=== PATIENT | female | born 1985 | race African-American/Black ===

== ENCOUNTER 2017-05-12 23:11 | Emergency (ER) | payer SELFPAY ==
[2017-05-12 23:24] VITALS: BP 151/95
[2017-05-13] MEDS ORDERED: ONDANSETRON 4 MG TAB.RAPDIS PO ONE (01:49)
[2017-05-13] MEDS ORDERED: OXYCODONE-ACETAMINOPHEN 5-325 MG TABLET PO ONE (01:49)
[2017-05-13] MEDS ORDERED: FAMOTIDINE 20 MG TABLET PO ONE (01:50)
[2017-05-13] MEDS ORDERED: SUCRALFATE 1 GM TABLET PO ONE (01:50)
--- NOTE | 2017-05-13 01:53 | ER Document Report ---
ED GI/ - General Chief Complaint: Abdominal Pain Stated Complaint: ABDOMINAL PAIN Time Seen by Provider: 05/13/17 01:42 Notes: Patient is a 32-year-old female that comes to the emergency department for chief complaint of upper abdominal pain. She states it has been intermittent for the past week but became worse tonight, she states she threw up twice. She denies hematemesis, hematochezia, had a normal bowel movement today. She denies fever or chills. She states she has a history of reflux, she feels worse when she eats, she has trouble lying down, and she started taking both an [id number] reflux medication that she cannot name and also ibuprofen. She states she feels like she is worse. Only past medical history otherwise of . She smokes. Rare alcohol. TRAVEL OUTSIDE OF THE [place] IN LAST 30 DAYS: No - Related Data Allergies/Adverse Reactions: No Known Allergies Allergy (Verified 03/08/13 10:55) Past Medical History - General Information source: Patient - Social History Smoking Status: Never Smoker Frequency of alcohol use: None Drug Abuse: None Lives with: Family Family History: Reviewed & Not Pertinent - Past Medical History Cardiac Medical History: Reports: Hx Hypertension Pulmonary Medical History: Reports: Hx COPD Past Surgical History: Reports: Hx Tubal Ligation - Immunizations Hx Diphtheria, Pertussis, Tetanus Vaccination: - unknown Review of Systems - Review of Systems Constitutional: No symptoms reported EENT: No symptoms reported Cardiovascular: No symptoms reported Respiratory: No symptoms reported Gastrointestinal: See HPI Genitourinary: No symptoms reported Female Genitourinary: No symptoms reported Musculoskeletal: No symptoms reported Skin: No symptoms reported Hematologic/Lymphatic: No symptoms reported Neurological/Psychological: No symptoms reported Physical Exam - Vital signs Vitals: Temp Pulse Resp BP Pulse Ox 99.0 F 78 18 151/95 H 100 05/12/17 23:22 05/12/17 23:22 05/12/17 23:22 05/12/17 23:22 05/12/17 23:22 Interpretation: Normal - General General appearance: Appears well, Alert In distress: None - HEENT Head: Normocephalic, Atraumatic Eyes: Normal Pupils: PERRL - Respiratory Respiratory status: No respiratory distress Chest status: Nontender Breath sounds: Normal. No: Decreased air movement, Wheezing Chest palpation: Normal - Cardiovascular Rhythm: Regular. No: Tachycardia Heart sounds: Normal auscultation, S1 appreciated, S2 appreciated Murmur: No - Abdominal Inspection: Normal Distension: No distension Bowel sounds: Normal Tenderness: Tender - There is tenderness in the epigastric area and left upper quadrant, no right upper quadrant tenderness, no severe tenderness or guarding, lower abdomen is benign Organomegaly: No organomegaly - Back Back: Normal, Nontender - Extremities General upper extremity: Normal inspection, Nontender, Normal color, Normal ROM , Normal temperature General lower extremity: Normal inspection, Nontender, Normal color, Normal ROM , Normal temperature, Normal weight bearing. No: Bety's sign - Neurological Neuro grossly intact: Yes Cognition: Normal Orientation: AAOx4 [place] Coma Scale Eye Opening: Spontaneous [place] Coma Scale Verbal: Oriented [place] Coma Scale Motor: Obeys Commands Malathi Coma Scale Total: 15 Speech: Normal Motor strength normal: LUE, RUE, LLE, RLE Sensory: Normal - Psychological Associated symptoms: Normal affect, Normal mood - Skin Skin Temperature: Warm Skin Moisture: Dry Skin Color: Normal Course - Re-evaluation Re-evalutation: Patient is well-appearing, has tenderness in the left upper quadrant and epigastric area with no right upper quadrant tenderness. History of GERD, taking ibuprofen because she did not know this would make it worse. After medications by mouth patient states she feels a lot better. CBC unremarkable, chemistry, lipase unremarkable. Urinalysis actually shows infection. Patient has no CVA tenderness, no lower abdominal tenderness. Discussed this, decision was made to treat because of the amount of evidence that she has a urinary tract infection. Discussed follow -up, return precautions. Patient states understanding and agreement. - Vital Signs Vital signs: Temp Pulse Resp BP Pulse Ox 99.0 F 78 18 151/95 H 100 05/12/17 23:22 05/12/17 23:22 05/12/17 23:22 05/12/17 23:22 05/12/17 23:22 - Laboratory Result Diagrams: 05/13/17 02:18 05/13/17 02:18 Laboratory results interpreted by me: 05/13/17 05/13/17 02:18 02:18 RDW 15.8 H Urine Nitrite POSITIVE H Ur Leukocyte Esterase SMALL H Discharge - Discharge Clinical Impression: Upper abdominal pain Condition: Stable Disposition: HOME, SELF-CARE Additional Instructions: Your workup and evaluation are most consistent with gastritis. Take the Pepcid and Carafate as prescribed, start with clear fluids, progress to bland food, then progress to normal. Avoid spicy food, NSAIDs (ibuprofen, naproxen, aspirin , etc.), alcohol, smoking, and high levels of caffeine. Follow-up with primary care for additional evaluation, especially if symptoms continue. Your urine indicates an infection, take Keflex antibiotics as prescribed. Return if you worsen in anyway including vomiting, vomiting blood, severe pain, fever of 100.4 or greater, black stools, or any other concerning symptoms. Prescriptions: Cephalexin Monohydrate [Keflex 500 mg Capsule] 500 mg PO BID #10 capsule Famotidine [Pepcid 20 mg Tablet] 20 mg PO BID #20 tablet Sucralfate [Carafate 1 gm Tablet] 1 gm PO QID #40 tablet
[2017-05-13 02:31] LABS: ABSOLUTE EOSINOPHILS # (AUTO) 0.1 10^3/uL (0.0-0.6); ABSOLUTE LYMPHOCYTES (AUTO) 2.6 10^3/uL (0.5-4.7); ABSOLUTE MONOCYTES (AUTO) 0.5 10^3/uL (0.1-1.4); ABSOLUTE NEUT (AUTO) 4.9 10^3/uL (1.7-8.2); BASOPHILS % (AUTO) 0.5 % (0-2); EOSINOPHILS % (AUTO) 1.3 % (0-6); HEMATOCRIT 37.2 % (36.0-47.0); HEMOGLOBIN 12.3 g/dL (12.0-15.5); LYMPHOCYTES % (AUTO) 31.9 % (13-45); MEAN CORPUSCULAR HEMOGLOBIN 27.2 pg (27.0-33.4); MEAN CORPUSCULAR VOLUME 83 fl (80-97); MONOCYTES % (AUTO) 6.7 % (3-13); PLATELET COUNT 354 10^3/uL (150-450); RED CELL DISTRIBUTION WIDTH 15.8 % (11.5-14.0); SEGMENTED NEUTROPHILS % (AUTO) 59.6 % (42-78); TOTAL CELLS COUNTED % (AUTO) 100 %; WHITE BLOOD COUNT 8.2 10^3/uL (4.0-10.5)
[2017-05-13 02:49] LABS: BILIRUBIN,URINE NEGATIVE (NEGATIVE); COLOR,URINE YELLOW; GLUCOSE, URINE NEGATIVE (NEGATIVE); KETONES,URINE NEGATIVE (NEGATIVE); LEUKOCYTE ESTERASE,URINE SMALL (NEGATIVE); NITRITE,URINE POSITIVE (NEGATIVE); PROTEIN,URINE NEGATIVE (NEGATIVE); URINE SPECIFIC GRAVITY 1.023; UROBILINOGEN,URINE NEGATIVE mg/dL (<2.0)
[2017-05-13 02:50] LABS: ALANINE AMINOTRANSFERASE 21 U/L (9-52); ALBUMIN 4.2 g/dL (3.5-5.0); ALKALINE PHOSPHATASE 47 U/L (38-126); ANION GAP 15 (5-19); APPEARANCE,URINE HAZY; ASPARTATE AMINO TRANSFERASE 15 U/L (14-36); BILIRUBIN,DIRECT 0.3 mg/dL (0.0-0.4); BILIRUBIN,TOTAL 0.3 mg/dL (0.2-1.3); BLOOD UREA NITROGEN 14 mg/dL (7-20); CALCIUM 9.6 mg/dL (8.4-10.2); CARBON DIOXIDE 25 mmol/L (22-30); CHLORIDE 101 mmol/L (98-107); GLUCOSE 96 mg/dL (75-110); LIPASE 171.5 U/L (23-300); POTASSIUM 4.2 mmol/L (3.6-5.0); SODIUM 140.7 mmol/L (137-145); TOTAL PROTEIN 7.4 g/dL (6.3-8.2)
[2017-05-13] MEDS ORDERED: HYDROCODONE/ACETAMINOPHEN 5-325 MG (6 TAB/ER DISP) PO PRN (03:11)
[2017-05-13] MEDS ORDERED: CEPHALEXIN 500 MG CAPSULE PO ONE (03:11)
== END 2017-05-13 03:22 | disposition home or self-care (01) ==
LOC: ER 23:11
DX: K21.9 Gastro-esophageal reflux disease without esophagitis (principal); N39.0 Urinary tract infection, site not specified; R10.10 Upper abdominal pain, unspecified; R10.816 Epigastric abdominal tenderness; R10.812 Left upper quadrant abdominal tenderness; R11.10 Vomiting, unspecified; I10 Essential (primary) hypertension; J44.9 Chronic obstructive pulmonary disease, unspecified
CPT/HCPCS: 99284; 36415; 83690; 85025; 81025; 80053; 81001; S0119

== ENCOUNTER 2017-07-04 19:16 | Emergency (ER) | payer SELFPAY ==
--- NOTE | 2017-07-04 19:42 | ER Document Report ---
ED Medical Screen (RME) - General Chief Complaint: Abdominal Pain Stated Complaint: ABDOMINAL PAIN Time Seen by Provider: 07/04/17 19:39 Notes: pt states she has left flank pain and congestion, rhinorhea. no urinary sx's TRAVEL OUTSIDE OF THE [place] IN LAST 30 DAYS: No - Related Data Allergies/Adverse Reactions: No Known Allergies Allergy (Verified 03/08/13 10:55) Past Medical History - Social History Chew tobacco use (# tins/day): No Frequency of alcohol use: None Drug Abuse: None Family history: Reviewed & Not Pertinent - Past Medical History Cardiac Medical History: Reports: Hx Hypertension Pulmonary Medical History: Reports: Hx COPD Renal/ Medical History: Denies: Hx Peritoneal Dialysis Past Surgical History: Reports: Hx Tubal Ligation - Immunizations Hx Diphtheria, Pertussis, Tetanus Vaccination: - unknown Physical Exam - Vital signs Vitals: Temp Pulse Resp BP Pulse Ox 99.5 F 96 18 143/93 H 99 07/04/17 19:20 07/04/17 19:20 07/04/17 19:20 07/04/17 19:20 07/04/17 19:20 Course - Vital Signs Vital signs: Temp Pulse Resp BP Pulse Ox 99.5 F 96 18 143/93 H 99 07/04/17 19:20 07/04/17 19:20 07/04/17 19:20 07/04/17 19:20 07/04/17 19:20
[2017-07-04 20:34] LABS: ABSOLUTE BASOPHILS # (AUTO) 0.1 10^3/uL (0.0-0.2); ABSOLUTE LYMPHOCYTES (AUTO) 2.3 10^3/uL (0.5-4.7); ABSOLUTE MONOCYTES (AUTO) 0.8 10^3/uL (0.1-1.4); ABSOLUTE NEUT (AUTO) 7.8 10^3/uL (1.7-8.2); BASOPHILS % (AUTO) 0.8 % (0-2); EOSINOPHILS % (AUTO) 0.4 % (0-6); HEMATOCRIT 38.1 % (36.0-47.0); HEMOGLOBIN 12.4 g/dL (12.0-15.5); LYMPHOCYTES % (AUTO) 20.8 % (13-45); MEAN CORPUSCULAR HEMOGLOBIN 26.7 pg (27.0-33.4); MEAN CORPUSCULAR HGB CONC 32.5 g/dL (32.0-36.0); MEAN CORPUSCULAR VOLUME 82 fl (80-97); MONOCYTES % (AUTO) 7.1 % (3-13); PLATELET COUNT 348 10^3/uL (150-450); RED BLOOD COUNT 4.64 10^6/uL (3.72-5.28); RED CELL DISTRIBUTION WIDTH 15.4 % (11.5-14.0); SEGMENTED NEUTROPHILS % (AUTO) 70.9 % (42-78); TOTAL CELLS COUNTED % (AUTO) 100 %
[2017-07-04 20:54] LABS: ALANINE AMINOTRANSFERASE 22 U/L (9-52); ALBUMIN 4.5 g/dL (3.5-5.0); ALKALINE PHOSPHATASE 63 U/L (38-126); ANION GAP 11 (5-19); ASPARTATE AMINO TRANSFERASE 19 U/L (14-36); BILIRUBIN,DIRECT 0.2 mg/dL (0.0-0.4); BILIRUBIN,TOTAL 1.2 mg/dL (0.2-1.3); BLOOD UREA NITROGEN 9 mg/dL (7-20); CARBON DIOXIDE 25 mmol/L (22-30); CHLORIDE 102 mmol/L (98-107); GLUCOSE 94 mg/dL (75-110); POTASSIUM 4.2 mmol/L (3.6-5.0); SODIUM 137.9 mmol/L (137-145); TOTAL PROTEIN 7.7 g/dL (6.3-8.2)
--- NOTE | 2017-07-04 20:54 | RADIOLOGY REPORT (SQ) ---
EXAM DESCRIPTION: CHEST 2 VIEWS COMPLETED DATE/TIME: 07/04/2017 8:46 pm REASON FOR STUDY: pain/left lateral chest COMPARISON: None. EXAM PARAMETERS: NUMBER OF VIEWS: two views TECHNIQUE: Digital Frontal and Lateral radiographic views of the chest acquired. RADIATION DOSE: NA LIMITATIONS: none FINDINGS: LUNGS AND PLEURA: No opacities, masses or pneumothorax. No pleural effusion. MEDIASTINUM AND HILAR STRUCTURES: No masses or contour abnormalities. HEART AND VASCULAR STRUCTURES: Heart normal size. No evidence for failure. BONES: No acute findings. HARDWARE: None in the chest. OTHER: No other significant finding. IMPRESSION: NO ACUTE RADIOGRAPHIC FINDING IN THE CHEST. TECHNICAL DOCUMENTATION: JOB ID: [id number] [employer]- All Rights Reserved Reading location - IP/workstation name: [email or web address]
[2017-07-04] MEDS ORDERED: LIDOCAINE 2% VISCOUS SOLN 20 ML UDCUP PO ONE (21:04)
[2017-07-04] MEDS ORDERED: MAG HYDROX/AL HYDROX/SIMETH SUSP 30 ML UDCUP PO ONE (21:04)
[2017-07-04] MEDS ORDERED: METOCLOPRAMIDE HCL ORAL SOLN 10 MG/10 ML UDCUP PO ONE (21:04)
--- NOTE | 2017-07-04 21:08 | ER Document Report ---
ED GI/ - General Chief Complaint: Abdominal Pain Stated Complaint: ABDOMINAL PAIN Time Seen by Provider: 07/04/17 19:39 Mode of Arrival: Ambulatory Information source: Patient TRAVEL OUTSIDE OF THE [place] IN LAST 30 DAYS: No - HPI Patient complains to provider of: Abdominal pain Onset: Yesterday Timing/Duration: Gradual Quality of pain: Sharp, Stabbing Severity at maximum: Moderate Severity in ED: Moderate Pain Level: 4 Location: Epigastric Vaginal bleeding (Compared to normal period): None Associated symptoms: Chills Exacerbated by: Deep breathing Relieved by: Denies Similar symptoms previously: Yes Notes: 07/04/17 21:07 Patient is a 32-year-old female presenting to the emergency room today complaining of epigastric abdominal pain, states it hurts when she takes a deep breath, she reports a headache as well as chills and hot flashes at times but denies any nausea, vomiting or diarrhea, no dysuria or hematuria, no vaginal bleeding or discharge, she reports a history of similar symptoms in the past and was seen here in the emergency department, diagnosed with acid reflux, not currently taking any medications for this - Related Data Allergies/Adverse Reactions: No Known Allergies Allergy (Verified 07/04/17 22:08) Past Medical History - General Information source: Patient - Social History Smoking Status: Current Every Day Smoker Chew tobacco use (# tins/day): No Frequency of alcohol use: None Drug Abuse: None Family History: Reviewed & Not Pertinent Patient has suicidal ideation: No Patient has homicidal ideation: No - Past Medical History Cardiac Medical History: Reports: Hx Hypertension Pulmonary Medical History: Reports: Hx COPD Renal/ Medical History: Denies: Hx Peritoneal Dialysis Past Surgical History: Reports: Hx Section, Hx Tubal Ligation - Immunizations Hx Diphtheria, Pertussis, Tetanus Vaccination: - unknown Review of Systems - Review of Systems Constitutional: No symptoms reported EENT: No symptoms reported Cardiovascular: No symptoms reported Respiratory: No symptoms reported Gastrointestinal: See HPI Genitourinary: No symptoms reported Female Genitourinary: No symptoms reported Musculoskeletal: No symptoms reported Skin: No symptoms reported Hematologic/Lymphatic: No symptoms reported Neurological/Psychological: No symptoms reported -: Yes All other systems reviewed and negative Physical Exam - Vital signs Vitals: Temp Pulse Resp BP Pulse Ox 99.5 F 96 18 143/93 H 99 07/04/17 19:20 07/04/17 19:20 07/04/17 19:20 07/04/17 19:20 07/04/17 19:20 Interpretation: Normal - General General appearance: Appears well, Alert - HEENT Head: Normocephalic, Atraumatic Eyes: Normal Pupils: PERRL - Respiratory Respiratory status: No respiratory distress Chest status: Nontender Breath sounds: Normal Chest palpation: Normal - Cardiovascular Rhythm: Regular Heart sounds: Normal auscultation Murmur: No - Abdominal Inspection: Normal Distension: No distension Bowel sounds: Normal Tenderness: Tender - Epigastric Organomegaly: No organomegaly - Back Back: Normal, Nontender - Extremities General upper extremity: Normal inspection, Nontender, Normal color, Normal ROM , Normal temperature General lower extremity: Normal inspection, Nontender, Normal color, Normal ROM , Normal temperature, Normal weight bearing. No: Bety's sign - Neurological Neuro grossly intact: Yes Cognition: Normal Orientation: AAOx4 [place] Coma Scale Eye Opening: Spontaneous [place] Coma Scale Verbal: Oriented Malathi Coma Scale Motor: Obeys Commands Malathi Coma Scale Total: 15 Speech: Normal Motor strength normal: LUE, RUE, LLE, RLE Sensory: Normal - Psychological Associated symptoms: Normal affect, Normal mood - Skin Skin Temperature: Warm Skin Moisture: Dry Skin Color: Normal Course - Re-evaluation Re-evalutation: 07/04/17 22:45 Patient sleeping comfortably, easily aroused, reports feeling much better and ready to go home, lab and imaging findings were discussed at bedside which are consistent with urinary tract infection, symptoms otherwise likely related to acid reflux, patient will be started on antibiotics and acid reducing medication , and provided with instructions for follow-up, advised to return if symptoms worsen, patient acknowledges understanding and agreement with this plan - Vital Signs Vital signs: Temp Pulse Resp BP Pulse Ox 99.5 F 96 18 143/93 H 99 07/04/17 19:20 07/04/17 19:20 07/04/17 19:20 07/04/17 19:20 07/04/17 19:20 - Laboratory Result Diagrams: 07/04/17 20:15 07/04/17 20:15 Laboratory results interpreted by me: 07/04/17 07/04/17 20:15 20:15 WBC 11.0 H MCH 26.7 L RDW 15.4 H Urine Blood SMALL H Urine Urobilinogen 2.0 H Ur Leukocyte Esterase SMALL H - Diagnostic Test Radiology reviewed: Image reviewed, Reports reviewed Discharge - Discharge Clinical Impression: Urinary tract infection Qualifiers: Urinary tract infection type: site unspecified Hematuria presence: without hematuria Qualified Code(s): N39.0 - Urinary tract infection, site not specified Gastritis Qualifiers: Gastritis type: unspecified gastritis Chronicity: acute Gastritis bleeding: without bleeding Qualified Code(s): K29.00 - Acute gastritis without bleeding Condition: Stable Disposition: HOME, SELF-CARE Instructions: Abdominal Pain ([facility]), Urinary Tract Infection ([facility]), Gastritis ( [facility]), Gastroenterology Additional Instructions: Follow up with your primary care provider in one to 2 days. Return to the emergency room immediately if symptoms worsen or any additional concerns. Prescriptions: Cephalexin Monohydrate [Keflex 500 mg Capsule] 500 mg PO BID #20 capsule Famotidine [Pepcid 20 mg Tablet] 20 mg PO BID #60 tablet Forms: Return to Work
[2017-07-04] MEDS ORDERED: NORMAL SALINE 1000 ML 1,000 ML IV ONE (21:17)
[2017-07-04] MEDS ORDERED: FAMOTIDINE INJ/PF 20 MG/2 ML SDV IV ONE (21:17)
[2017-07-04] MEDS ORDERED: ONDANSETRON HCL INJ/PF 4 MG/2 ML SDV IV ONE (21:17)
[2017-07-04 21:32] LABS: APPEARANCE,URINE CLEAR; BILIRUBIN,URINE NEGATIVE (NEGATIVE); COLOR,URINE YELLOW; GLUCOSE, URINE NEGATIVE (NEGATIVE); KETONES,URINE NEGATIVE (NEGATIVE); LEUKOCYTE ESTERASE,URINE SMALL (NEGATIVE); NITRITE,URINE NEGATIVE (NEGATIVE); PROTEIN,URINE NEGATIVE (NEGATIVE); URINE SPECIFIC GRAVITY 1.014
[2017-07-04] MEDS ORDERED: CEPHALEXIN 500 MG CAPSULE PO ONE (22:44)
[2017-07-04 23:07] VITALS: BP 113/68
== END 2017-07-04 23:06 | disposition home or self-care (01) ==
LOC: ER 19:16
DX: K29.00 Acute gastritis without bleeding (principal); N39.0 Urinary tract infection, site not specified; R10.13 Epigastric pain; R07.1 Chest pain on breathing; R51 Headache; R68.83 Chills (without fever); F17.200 Nicotine dependence, unspecified, uncomplicated; I10 Essential (primary) hypertension; J44.9 Chronic obstructive pulmonary disease, unspecified; Z87.19 Personal history of other diseases of the digestive system
CPT/HCPCS: 99284; 96361; 96374; 96375; 36415; 83690; 85025; 81025; 80053; 81001; 71046; J3490; J2405; J7030; S0028

== ENCOUNTER 2018-08-20 10:10 | Emergency (ER) | payer SELFPAY ==
[2018-08-20] MEDS ORDERED: ACETAMINOPHEN 325 MG TABLET PO ONE (11:20)
[2018-08-20] MEDS ORDERED: KETOROLAC TROMETHAMINE 60 MG/2 ML SDV IM ONE (11:20)
[2018-08-20] MEDS ORDERED: LIDOCAINE 5% (700 MG) TRANSDERMAL ADH..PATCH TP ONE (11:20)
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
[2018-08-20 12:10] VITALS: BP 129/89
== END 2018-08-20 12:10 | disposition home or self-care (01) ==
LOC: ER 10:10
DX: M25.511 Pain in right shoulder (principal); I10 Essential (primary) hypertension; J44.9 Chronic obstructive pulmonary disease, unspecified; Z98.51 Tubal ligation status
CPT/HCPCS: 99283; 96372; J1885

== ENCOUNTER 2019-09-28 12:42 | Emergency (ER) | payer SELFPAY ==
[2019-09-28 13:19] VITALS: BP 147/96
[2019-09-28] MEDS ORDERED: PANTOPRAZOLE SODIUM 40 MG TABLET.DR PO ONE (13:57)
[2019-09-28] MEDS ORDERED: MAG HYDROX/AL HYDROX/SIMETH SUSP 30 ML UDCUP PO ONE (13:57)
--- NOTE | 2019-09-28 14:02 | ER Document Report ---
HPI - HPI Patient complains to provider of: Gastroesophageal reflux Time Seen by Provider: 09/28/19 13:55 Onset: Other - This is a 34-year-old female who presents emergency room today with an exacerbation of gastroesophageal reflux she has a history of gastroesophageal reflux although she does not take medication routinely or have consistent follow-up port. Quality of pain: No pain Associated Symptoms: None Similar symptoms previously: Yes Recently seen / treated by doctor: No - REPRODUCTIVE Reproductive: DENIES: : Past Medical History - General Information source: Patient - Social History Smoking Status: Never Smoker Cigarette use (# per day): No Chew tobacco use (# tins/day): No Smoking Education Provided: No Frequency of alcohol use: None Drug Abuse: None Family History: Reviewed & Not Pertinent - Past Medical History Cardiac Medical History: Reports: Hx Hypertension Pulmonary Medical History: Reports: Hx COPD Renal/ Medical History: Denies: Hx Peritoneal Dialysis Past Surgical History: Reports: Hx Section, Hx Tubal Ligation - Immunizations Hx Diphtheria, Pertussis, Tetanus Vaccination: - unknown Vertical Provider Document - CONSTITUTIONAL Agree With Documented VS: Yes - INFECTION CONTROL TRAVEL OUTSIDE OF THE [place] IN LAST 30 DAYS: No - HEENT HEENT: Atraumatic, Conjuctival Injection, Normocephalic, PERRLA - NECK Neck: Normal Inspection - RESPIRATORY Respiratory: Breath Sounds Normal - CARDIOVASCULAR Cardiovascular: Regular Rate, Regular Rhythm - GI/ABDOMEN Gastrointestinal: Abdomen Soft, Abdomen Non-Tender - REPRODUCTIVE Female Genitalia: Normal Inspection - BACK Back: Normal Inspection - MUSCULOSKELETAL/EXTREMETIES Musculoskeletal/Extremeties: MAEW - NEURO Level of Consciousness: Awake, Alert Course - Re-evaluation Re-evalutation: 09/28/19 13:59 Again this 34-year-old female she does have a longstanding history of gastroesophageal reflux she has been seen here intermittently for such she has a long family history of such she has quit drinking and quit smoking however whenever she eats a lot of deep fried fatty foods she gets the same symptoms again and her diet has not been the best as of late. The patient and I had a conversation about she really needs to obtain consistent outpatient follow-up probably be worthwhile to see a GI doctor and consider getting scope. She will be referred by She has no chest pain or shortness of breath no exertional chest pain no exertional shortness of breath no dyspnea no diaphoresis. - Vital Signs Vital signs: Temp Pulse Resp BP Pulse Ox 99.0 F 83 20 147/96 H 100 09/28/19 13:17 09/28/19 13:17 09/28/19 13:17 09/28/19 13:17 09/28/19 13:17 Discharge - Discharge Clinical Impression: Gastroesophageal reflux disease Qualifiers: Esophagitis presence: esophagitis presence not specified Qualified Code(s): K21.9 - Gastro-esophageal reflux disease without esophagitis Condition: Good Disposition: HOME, SELF-CARE Additional Instructions: Reflux Disease (GERD) Gastro-Esophageal Reflux Disease (GERD) is caused by stomach acid refluxing back up into the esophagus. The valve at the end of the esophagus may be weak. This is common in persons with a hiatal hernia. GERD symptoms can include indigestion, chest pain, heartburn, or food "sticking." Certain foods, alcohol, and aspirin can make GERD worse. Treatment depends on the severity. Usually, antacids or acid-suppressing medicines are used. When the esophagus is acutely inflamed, the physician will often prescribe membrane-protective drugs such as Carafate. Some patients be nefit from medication such as Reglan that tightens the valve at the top of the stomach. Avoid those foods that bring on your symptoms. For many people, these foods are coffee, chocolate, onions, garlic, and carbonated drinks. Don't use alcohol, aspirin, caffeine, or tobacco. Don't eat late at night -- within 4 hours of bedtime. Don't over-eat. If necessary, elevate the head of your bed about 4 inches so that stomach acid will not roll up into your esophagus. Call the doctor if you develop severe chest pain, inability to swallow fluids, fever, or worsening symptoms. Prescriptions: Pantoprazole Sodium [Protonix [address] Tablet] 40 mg PO QAM #30 tablet. [facility]NO [facility] - Follow up as needed
== END 2019-09-28 14:09 | disposition home or self-care (01) ==
LOC: ER 12:42
DX: K21.9 Gastro-esophageal reflux disease without esophagitis (principal); I10 Essential (primary) hypertension; J44.9 Chronic obstructive pulmonary disease, unspecified
CPT/HCPCS: 99283; J3490

== ENCOUNTER 2020-03-01 21:59 | Emergency (ER) | payer MEDICAID ==
--- NOTE | 2020-03-01 22:46 | ER Document Report ---
ED Medical Screen (RME) - General Chief Complaint: Abdominal Pain Stated Complaint: ABDOMINAL PAIN Time Seen by Provider: 03/01/20 22:42 TRAVEL OUTSIDE OF THE [place] IN LAST 30 DAYS: No - HPI Notes: Patient is a 34-year-old female with history of hypertension who presents with abdominal cramping for the past few days. Patient describes the location of her pain as midepigastric. Patient states she had a episode of tarry black stool earlier today which caused her to come in to the emergency department. She reports nausea but denies vomiting, shortness of breath, chest pain, and fever. - Related Data Allergies/Adverse Reactions: No Known Allergies Allergy (Verified 09/28/19 13:55) Past Medical History - Social History Chew tobacco use (# tins/day): No Frequency of alcohol use: Occasional Drug Abuse: Marijuana Family history: Reviewed & Not Pertinent - Past Medical History Cardiac Medical History: Reports: Hx Hypertension Pulmonary Medical History: Reports: Hx COPD Renal/ Medical History: Denies: Hx Peritoneal Dialysis GI Medical History: Reports: Hx Gastroesophageal Reflux Disease Past Surgical History: Reports: Hx Section, Hx Tubal Ligation - Immunizations Hx Diphtheria, Pertussis, Tetanus Vaccination: - unknown Physical Exam - Vital signs Vitals: Temp Pulse Resp BP Pulse Ox 98.4 F 91 18 144/97 H 100 03/01/20 22:17 03/01/20 22:17 03/01/20 22:17 03/01/20 22:17 03/01/20 22:17 - Abdominal Distension: No distension Bowel sounds: Normal Tenderness: Tender - Midepigastric Notes: Exam limited due to patient seated position in triage Course - Re-evaluation Re-evalutation: I have greeted and performed a rapid initial assessment of this patient. A comprehensive ED assessment and evaluation of the patient, analysis of test results and completion of medical decision making process will be conducted by an additional ED providers. - Vital Signs Vital signs: Temp Pulse Resp BP Pulse Ox 98.4 F 91 18 144/97 H 100 03/01/20 22:17 03/01/20 22:17 03/01/20 22:17 03/01/20 22:17 03/01/20 22:17
[2020-03-01 22:55] LABS: ABSOLUTE BASOPHILS # (AUTO) 0.1 10^3/uL (0.0-0.2); ABSOLUTE EOSINOPHILS # (AUTO) 0.1 10^3/uL (0.0-0.6); ABSOLUTE LYMPHOCYTES (AUTO) 3.3 10^3/uL (0.5-4.7); ABSOLUTE MONOCYTES (AUTO) 0.6 10^3/uL (0.1-1.4); ABSOLUTE NEUT (AUTO) 3.8 10^3/uL (1.7-8.2); BASOPHILS % (AUTO) 1.1 % (0-2); EOSINOPHILS % (AUTO) 1.3 % (0-6); HEMATOCRIT 39.8 % (36.0-47.0); HEMOGLOBIN 13.1 g/dL (12.0-15.5); LYMPHOCYTES % (AUTO) 42.1 % (13-45); MEAN CORPUSCULAR HEMOGLOBIN 27.6 pg (27.0-33.4); MEAN CORPUSCULAR VOLUME 84 fl (80-97); PLATELET COUNT 358 10^3/uL (150-450); RED BLOOD COUNT 4.76 10^6/uL (3.72-5.28); RED CELL DISTRIBUTION WIDTH 15.2 % (11.5-14.0); SEGMENTED NEUTROPHILS % (AUTO) 48.5 % (42-78); TOTAL CELLS COUNTED % (AUTO) 100 %; WHITE BLOOD COUNT 7.9 10^3/uL (4.0-10.5)
[2020-03-01 23:13] LABS: ALBUMIN 4.7 g/dL (3.5-5.0); ALKALINE PHOSPHATASE 65 U/L (38-126); ANION GAP 10 (5-19); ASPARTATE AMINO TRANSFERASE 22 U/L (14-36); BILIRUBIN,DIRECT 0.1 mg/dL (0.0-0.4); BILIRUBIN,TOTAL 0.3 mg/dL (0.2-1.3); BLOOD UREA NITROGEN 14 mg/dL (7-20); CARBON DIOXIDE 25 mmol/L (22-30); CHLORIDE 104 mmol/L (98-107); GLUCOSE 110 mg/dL (75-110); POTASSIUM 4.2 mmol/L (3.6-5.0); TOTAL PROTEIN 8.5 g/dL (6.3-8.2)
[2020-03-02 00:37] LABS: APPEARANCE,URINE CLEAR; BILIRUBIN,URINE NEGATIVE (NEGATIVE); COLOR,URINE YELLOW; GLUCOSE, URINE NEGATIVE (NEGATIVE); KETONES,URINE TRACE mg/dL (NEGATIVE); LEUKOCYTE ESTERASE,URINE SMALL (NEGATIVE); NITRITE,URINE NEGATIVE (NEGATIVE); PROTEIN,URINE NEGATIVE (NEGATIVE); UROBILINOGEN,URINE NEGATIVE mg/dL (<2.0)
--- NOTE | 2020-03-02 06:14 | ER Document Report ---
ED Medical Screen (RME) - General Chief Complaint: Abdominal Pain Stated Complaint: ABDOMINAL PAIN Time Seen by Provider: 03/01/20 22:42 Primary Care Provider: STEPHANIE DEGROOT PA-C [Primary Care Provider] - Follow up as needed Notes: 34-year-old female with GERD presents with approximately 2 days of severe constant upper abdominal pain and epigastrium and right upper quadrant that she says feels different than her prior GERD pain. Patient endorses having 2-3 black appearing stools. Patient denies prior GI bleed history, lightheadedness, fainting, fever, vomiting, lower abdominal/pelvic symptoms, urinary symptoms TRAVEL OUTSIDE OF THE [place] IN LAST 30 DAYS: No - Related Data Allergies/Adverse Reactions: No Known Allergies Allergy (Verified 09/28/19 13:55) Past Medical History - General Information source: Patient - Social History Chew tobacco use (# tins/day): No Frequency of alcohol use: Occasional Drug Abuse: Marijuana Family history: Reviewed & Not Pertinent - Past Medical History Cardiac Medical History: Reports: Hx Hypertension Pulmonary Medical History: Reports: Hx COPD Renal/ Medical History: Denies: Hx Peritoneal Dialysis GI Medical History: Reports: Hx Gastroesophageal Reflux Disease Past Surgical History: Reports: Hx Section, Hx Tubal Ligation - Immunizations Hx Diphtheria, Pertussis, Tetanus Vaccination: - unknown Review of Systems - Review of Systems Notes: No syncope, no chest pain Physical Exam - Vital signs Vitals: Temp Pulse Resp BP Pulse Ox 98.4 F 91 18 144/97 H 100 03/01/20 22:17 03/01/20 22:17 03/01/20 22:17 03/01/20 22:17 03/01/20 22:17 - Notes Notes: Well-appearing young adult patient with right upper quadrant tenderness without rebound or guarding and mild epigastric tenderness Course - Re-evaluation Re-evalutation: 03/02/20 06:11 I have greeted and performed a rapid initial assessment of this patient. A comprehensive ED assessment and evaluation of the patient, analysis of test results and completion of medical decision making process will be conducted by additional ED providers. Rule out biliary colic, cholecystitis, upper GI bleed. Right upper quadrant ultrasound and hCG pending. I ordered ultrasound on paper ordered during downtime which was never sent to radiology, patient still needs right upper quadrant ultrasound so I will place an electronic order at this time. - Vital Signs Vital signs: Temp Pulse Resp BP Pulse Ox 98.4 F 91 18 144/97 H 100 03/01/20 22:17 03/01/20 22:17 03/01/20 22:17 03/01/20 22:17 03/01/20 22:17 - Laboratory Results Result Diagrams: 03/01/20 22:46 03/01/20 22:46 Laboratory Results Interpreted: 03/01/20 03/01/20 22:46 22:46 RDW 15.2 H Total Protein 8.5 H Doctor's Discharge - Discharge Referrals: STEPHANIE DEGROOT PA-C [Primary Care Provider] - Follow up as needed
[2020-03-02] MEDS ORDERED: CEFTRIAXONE 1 GM/D5W RTU 1 GM/50 ML RTUPB IV ONE ×2 (06:40→09:30)
[2020-03-02] MEDS ORDERED: MAG HYDROX/AL HYDROX/SIMETH SUSP 30 ML UDCUP PO ONE ×2 (07:17→09:15)
[2020-03-02] MEDS ORDERED: LIDOCAINE 2% VISCOUS SOLN 15 ML UDCUP PO ONE ×2 (07:17→09:15)
[2020-03-02] MEDS ORDERED: METOCLOPRAMIDE HCL ORAL SOLN 10 MG/10 ML UDCUP PO ONE ×2 (07:17→09:15)
--- NOTE | 2020-03-02 07:19 | ER Document Report ---
ED GI/ - General Chief Complaint: Abdominal Pain Stated Complaint: ABDOMINAL PAIN Time Seen by Provider: 03/01/20 22:42 Primary Care Provider: STEPHANIE DEGROOT PA-C [Primary Care Provider] - Follow up as needed Notes: HPI: 34-year-old female presents today stating some intermittent epigastric nonradiating abdominal "pain" for 1 week. Patient states she does have a history of acid reflux. She denies any real aggravating relieving factors. Not really worse with food. Nausea without vomiting. Some intermittent diarrhea. She thought possibly she had some black stool. She denies a history of rectal bleeding. Patient states he bled twice this month which is unusual for her normal menstrual cycle. She states she is not . Denies any lightheadedness or dizziness. ROS: See HPI All other review of systems reviewed and otherwise negative Reviewed vital signs and nursing note as charted by RN. PHYSICAL EXAM: CONSTITUTIONAL: Alert and oriented and responds appropriately to questions. Well-appearing; well-nourished HEAD: Normocephalic; atraumatic EYES: Sclerae non-icteric and not pale ENT: Normal nose; no rhinorrhea; moist mucous membranes; pharynx without lesions noted NECK: Supple without meningismus; non-tender; no cervical lymphadenopathy, no masses CARD: Regular rate and rhythm; no murmurs; symmetric distal pulses RESP: Normal chest excursion without splinting or tachypnea; breath sounds clear and equal bilaterally; no wheezes, no rhonchi, no rales ABD/GI: Normal bowel sounds; non-distended; soft, epigastric discomfort with no rebound or guarding. Negative Monsalve sign. No lower abdominal tenderness : With barrel rifler hook present I did perform a rectal examination showing no gross blood with Hemoccult negative stool BACK: The back appears normal and is non-tender to palpation EXT: Normal ROM in all joints; non-tender to palpation; no edema SKIN: No acute lesions noted NEURO: CN 2-12 intact; 5/5 bilateral upper and lower extremity strength with sensation intact to light touch PSYCH: The patient's mood and manner are appropriate. Grooming and personal hygiene are appropriate. TRAVEL OUTSIDE OF THE [place] IN LAST 30 DAYS: No - Related Data Allergies/Adverse Reactions: No Known Allergies Allergy (Verified 09/28/19 13:55) Past Medical History - General Information source: Patient - Social History Smoking Status: Current Every Day Smoker Chew tobacco use (# tins/day): No Frequency of alcohol use: Occasional Drug Abuse: Marijuana Family History: Reviewed & Not Pertinent Patient has homicidal ideation: No - Past Medical History Cardiac Medical History: Reports: Hx Hypertension Pulmonary Medical History: Reports: Hx COPD Renal/ Medical History: Denies: Hx Peritoneal Dialysis GI Medical History: Reports: Hx Gastroesophageal Reflux Disease Past Surgical History: Reports: Hx Section, Hx Tubal Ligation - Immunizations Hx Diphtheria, Pertussis, Tetanus Vaccination: - unknown Physical Exam - Vital signs Vitals: Temp Pulse Resp BP Pulse Ox 98.4 F 91 18 144/97 H 100 03/01/20 22:17 03/01/20 22:17 03/01/20 22:17 03/01/20 22:17 03/01/20 22:17 Course - Re-evaluation Re-evalutation: 03/02/20 07:18 Given the above history and physical, I will obtain basic labs, hemoglobin level, liver panel and lipase, obtain a right upper quadrant ultrasound and reassess. I would like to assess for the possibility of pancreatitis, transaminitis, gallbladder pathology, or electrolyte abnormality. Hemoccult is negative. Patient has no lower abdominal pain or symptoms. No dysuria. Given the history of reflux I will also provide a GI cocktail. If the work-up is unremarkable I believe the patient would benefit from outpatient endoscopy. 03/02/20 11:58 Labs as recorded. I did perform a CT scan secondary to the patient's kidney stone on ultrasound. No obvious kidney stones present on CT scan. Urine analysis as recorded. Antibiotics have been provided. Patient will be discharged home with strict return precautions and follow-up with the primary care physician for reassessment as well as referral for gastroenterology for possible endoscopy. - Vital Signs Vital signs: Temp Pulse Resp BP Pulse Ox 98.4 F 91 18 144/97 H 100 03/01/20 22:17 03/01/20 22:17 03/01/20 22:17 03/01/20 22:17 03/01/20 22:17 - Laboratory Results Result Diagrams: 03/01/20 22:46 03/01/20 22:46 Laboratory Results Interpreted: 03/01/20 03/01/20 03/02/20 22:46 22:46 00:19 RDW 15.2 H Total Protein 8.5 H Urine Ketones TRACE H Ur Leukocyte Esterase SMALL H Urine Ascorbic Acid 40 H Critical Laboratory Results Reviewed: No Critical Results - Radiology Results Critical Radiology Results Reviewed: No Critical Results Discharge - Discharge Clinical Impression: Epigastric abdominal pain, Kidney stone on right side, Urine leukocytes Condition: Good Disposition: HOME, SELF-CARE Additional Instructions: Come back immediately for any increased pain, change in location or quality of pain, fevers or vomiting, or any other acute problems. Please make sure that you take the Prilosec as we have discussed daily and follow-up with the bi analyst as provided. Prescriptions: Cephalexin Monohydrate [Keflex 500 mg Capsule] 500 mg PO Q6H 5 Days capsule Omeprazole Magnesium [Prilosec Otc] 20 mg PO DAILY #30 tablet.dr Referrals: STEPHANIE DEGROOT PA-C [Primary Care Provider] - Follow up as needed PADMINI TAYLOR MD [ACTIVE STAFF] - Follow up as needed
--- NOTE | 2020-03-02 07:28 | RADIOLOGY REPORT (SQ) ---
Ultrasound right upper quadrant on 03/02/2020 at 6:50 AM CLINICAL INDICATION: Right upper quadrant pain COMPARISON: None FINDINGS: Multiple sonographic images are obtained throughout the right upper quadrant, both transverse and sagittal images are obtained. Visualized pancreas is unremarkable. Visualized aorta is unremarkable without evidence of an aneurysm. Visualized liver is homogeneous without focal liver lesion. There are no gallstones, gallbladder wall thickening or pericholecystic fluid. Portal vein is patent and with a normal directional flow. There is a moderate-sized echogenic focus with posterior shadowing in the mid aspect of the right kidney consistent with nonobstructing right renal stone. Right kidney shows no hydronephrosis. Common duct measures 2 mm which is within normal limits mitigating against obstruction of the biliary tree. IMPRESSION: Right nephrolithiasis, otherwise unremarkable.
--- NOTE | 2020-03-02 09:43 | RADIOLOGY REPORT (SQ) ---
EXAM DESCRIPTION: CT ABD/PELVIS NO ORAL OR IV IMAGES COMPLETED DATE/TIME: 03/02/2020 8:48 am REASON FOR STUDY: 13; pain and stones on US COMPARISON: None. TECHNIQUE: CT scan of the abdomen and pelvis performed without intravenous or oral contrast. Images reviewed with lung, soft tissue, and bone windows. Reconstructed coronal and sagittal MPR images revi ewed. All images stored on PACS. All CT scanners at this facility use dose modulation, iterative reconstruction, and/or weight based d osing when appropriate to reduce radiation dose to as low as reasonably achievable (ALARA). [facility]: Dose Right [facility]: CareDose [facility]: Dose Right [facility]: Teradose 4D [facility]: [employer] RADIATION DOSE: mGy. LIMITATIONS: None. FINDINGS: LOWER CHEST: No significant findings. No nodules or infiltrates. NON-CONTRASTED LIVER, SPLEEN, ADRENALS: Evaluation limited by lack of IV contrast. No identified sign ificant masses. PANCREAS: No masses. No peripancreatic inflammatory changes. GALLBLADDER: No identified stones by CT criteria. No inflammatory changes to suggest cholecystitis. RIGHT KIDNEY AND URETER: No suspicious masses. Assessment limited by lack of IV contrast. 17 mm mid pole calculus. No hydronephrosis or hydroureter. LEFT KIDNEY AND URETER: No suspicious masses. Assessment limited by lack of IV contrast. No signifi cant calcifications. No hydronephrosis or hydroureter. AORTA AND RETROPERITONEUM: No aneurysm. No retroperitoneal masses or adenopathy. BOWEL AND PERITONEAL CAVITY: No obvious masses or inflammatory changes. No free fluid. APPENDIX: Normal. PELVIS, BLADDER, AND ABDOMINAL WALL:No abnormal masses. No free fluid. Bladder normal. BONES: No significant findings. OTHER: No other significant finding. IMPRESSION: Large nonobstructing stone right kidney. COMMENT: Quality ID # [id number]: Final reports with documentation of one or more dose reduction techniques (e.g., Automated exposure control, adjustment of the mA and/or kV according to patient size, use of iterative reconstruction technique) TECHNICAL DOCUMENTATION: JOB ID: [id number] 2010 [employer]- All Rights Reserved Reading location - IP/workstation name: [email or web address]
[2020-03-02] MEDS ORDERED: LIDOCAINE 1% INJ-PF (10 MG/ML) 30 ML SDV ONE (09:53)
[2020-03-02] MEDS ORDERED: CEFTRIAXONE INJ 1000 MG VIAL ONE (09:53)
[2020-03-02 14:40] VITALS: BP 135/83
== END 2020-03-02 14:41 | disposition home or self-care (01) ==
LOC: ER 21:59
DX: N20.0 Calculus of kidney (principal); K21.9 Gastro-esophageal reflux disease without esophagitis; R10.13 Epigastric pain; R11.0 Nausea; R19.7 Diarrhea, unspecified; F17.200 Nicotine dependence, unspecified, uncomplicated; F12.10 Cannabis abuse, uncomplicated; I10 Essential (primary) hypertension; J44.9 Chronic obstructive pulmonary disease, unspecified; Z98.51 Tubal ligation status
CPT/HCPCS: 99285; 96375; 96365; 36415; 83690; 85025; 81025; 80053; 81001; 76705; 74176; J3490 ×4; J0696 ×2